=== PATIENT | male | born 1985 | race Caucasian/White ===

== ENCOUNTER 2019-10-13 10:15 | Emergency (ER) | payer SELFPAY ==
[~2019-10-13] VITALS: Ht 180.3 cm; Wt 83.9 kg
[2019-10-13] MEDS ORDERED: ONDANSETRON HCL/PF 4 MG/2 ML VIAL ONE (11:06)
--- NOTE | 2019-10-13 11:09 | NUR ---
PT IS AWAKE, NAUSEATED AND VOMITING S/P GIVEN NARCAN IVP. DR CASTILLO AWARE. ZOFRAN IVP GIVEN PER ERMD VERBAL ORDER.
[2019-10-13 11:16] LABS: BASOPHILS % (AUTO) 0.1 % (0.0-2.0); HEMATOCRIT 41 % (39-51); HEMOGLOBIN 13.7 g/dL (13.5-17.5); LYMPHOCYTES # (AUTO) 0.6 /CMM (0.8-4.8); LYMPHOCYTES % (AUTO) 3.3 % (20.0-44.0); MEAN CORPUSCULAR HGB CONC 33 g/dl (31.0-36.0); MEAN CORPUSCULAR VOLUME 96 fL (80-96); MONOCYTES # (AUTO) 1.7 /CMM (0.1-1.30); MONOCYTES % (AUTO) 9.5 % (2.0-12.0); NEUTROPHILS # (AUTO) 15.2 /CMM (1.8-8.9); NEUTROPHILS % (AUTO) 87.1 % (43.0-81.0); PLATELET COUNT (AUTO) 210 /CMM (150-450); RED BLOOD CELL COUNT(AUTO) 4.32 MIL/uL (4.5-6.0); WHITE BLOOD COUNT (AUTO) 17.4 K/uL (4.3-11.0)
[2019-10-13 11:24] LABS: CARBON DIOXIDE 28 mmol/L (21-32); CHLORIDE 107 mmol/L (98-107); CREATININE 1.4 mg/dL (0.6-1.3); GLUCOSE 66 mg/dL (74-106); POTASSIUM 3.6 mmol/L (3.5-5.1); SODIUM SERUM 144 mmol/L (136-145); UREA NITROGEN, BLOOD 13 mg/dL (7-18)
[2019-10-13] MEDS ORDERED: ONDANSETRON HCL/PF - ER 4 MG/2 ML VIAL IV ONE (11:30)
[2019-10-13 11:40] LABS: ALANINE AMINOTRANSFERASE 15 U/L (12-78); ALBUMIN 4.1 g/dL (3.4-5.0); ALCOHOL, BLOOD < 3 mg/dL (0-0); ALKALINE PHOSPHATASE 75 U/L (46-116); ASPARTATE AMINOTRANSFERASE 21 U/L (15-37); BILIRUBIN,TOTAL 0.2 mg/dL (0.2-1.0); SALICYLATE 5.1 mg/dL (2.8-20.0)
[2019-10-13 11:41] LABS: ACETAMINOPHEN 0 ug/ml (10-30)
--- NOTE | 2019-10-13 11:50 | NUR ---
ORQUIDEA JOSE AT BEDSIDE
--- NOTE | 2019-10-13 12:30 | NUR ---
BRUSH PAINTER ART AT BEDSIDE FOR EVAL.
--- NOTE | 2019-10-13 13:42 | NUR ---
PT REFUSING TO PROVIDE URINE SAMPLE
--- NOTE | 2019-10-13 14:53 | NUR ---
[employer] F[employer] MANAGER met with the pt again. Pt is alert and oriented x 4. Pt is not willing to disclose information. Pt denies SI/HI and visual/auditory hallucinations at this time. Pt is a heroin user. Pt declined halfway placement and all homeless resources. Pt is interested in a TAP card and it was provided to him. Pt declined a meal as well. Pt. is ambulatory with a steady gait. Homeless patient waiver form was signed by the pt and placed in pt's chart. No other social service needs are requested at this time. [facility] and are aware of pt's discharge plan.
--- NOTE | 2019-10-13 14:56 | NUR ---
Patient discharged to home in stable condition. Written and verbal after care instructions given. Patient verbalizes understanding of instruction.
[2019-10-13 15:09] VITALS: BP 121/72
== END 2019-10-13 15:00 | disposition home or self-care (01) ==
LOC: EDBD 10:17 → ER 10:17
DX: T40.1X2A Poisoning by heroin, intentional self-harm, initial encounter (principal); Y92.89 Other specified places as the place of occurrence of the external cause
CPT/HCPCS: 36415; 80048; 80076; 80307; 80329; 85025; 96374; 99283; G0480; J2405 ×2